=== PATIENT | female | born 2005 | race Hispanic/Latino ===

== ENCOUNTER 2024-04-10 15:14 | Emergency (ER) | payer SELFPAY ==
[2024-04-10 15:17] VITALS: BP 157/106
--- NOTE | 2024-04-10 17:20 | ED.GENMED ---
History of Present Illness
General
Chief Complaint: Skin Surface Trauma
Source: patient
Time Seen by Provider: 04/10/24 16:23
History of Present Illness
History of Present Illness:
18yoF with no significant past medical history presenting with her significant other for evaluation of a right eyebrow laceration. 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 Patient was playing soccer
about 1 hour prior to when she jumped up for a header. She collided with another player causing a laceration. Patient has a minor headache currently. She is otherwise asymptomatic and denies any dizziness, vomiting, visual changes. She reports
being up-to-date on Tdap.
Phy Exam
General Physical Exam
General Presentation: well appearing and no apparent distress
General age: appears stated age
General Skin: warm and dry
General Habitus: normal
ENT Exam
ENT Exam: normocephalic
Eye Exam
Eye Exam: PERRL
Pulmonary Exam
Pulmonary Exam: no respiratory distress
Ovi Coma Scale
Eye Opening: Spontaneous
Verbal Response: Oriented
Motor Response: Obeys Commands
GCS Total Score: 15
Skin Exam
Skin Exam: warm/dry and laceration (3cm gaping laceration to the R eyebrow. No active bleeding.)
Psychiatric Exam
Psychiatric Exam: normal mood/affect
Course
Vital Signs
Initial and Last Documented VS:
Initial Vital Signs
Temp Pulse Resp BP Pulse Ox
99.0 F 120 18 157/106 98
04/10/24 15:17 04/10/24 15:17 04/10/24 15:17 04/10/24 15:17 04/10/24 15:17
Last Documented Vital Signs
Temp Pulse Resp BP Pulse Ox
99.0 F 120 18 157/106 98
04/10/24 15:17 04/10/24 15:17 04/10/24 17:37 04/10/24 15:17 04/10/24 15:17
Procedures
Laceration Closure
Right eyebrow:
Status of Wound: clean
Size of Wound in cm: 3
Description of Wound Edges: sharp
Preparation: cleaned with saline
Anesthesia: 1% Lidocaine
Revision/Debridement: routine- no revision
Wound exploration: extensive cleaning of contaminated wound and explored to base- no FB
Type of Closure: single layer closure and interrupted sutures
Skin Closure Material: 5-0 prolene
Number of sutures: 6
MDM/Problems Addressed
Differential Diagnosis Includes:
18yoF here with a R eyebrow laceration after colliding with another person while playing soccer. No LOC, vomiting, dizziness. 3cm gaping laceration noted on exam. No other external signs of head trauma noted. Laceration cleaned and repaired as
above. Home wound care discussed. She was instructed to get sutures removed in 5 days. ED return precautions discussed including signs of infection. She was discharged in stable condition.
*Critical Care Note
Total Time (30-74mins, 75-104mins- exclusive of procedures): Not Applicable
ED Attending Note
-
Portions of this chart may have been created with voice recognition software.� Occasional wrong word or��sound alike� substitutions may have occurred due to the inherent limitations of voice recognition software.
Discharge Plan
Departure
Patient Disposition: Home (Routine Discharge)
Date of Disposition: 04/10/24
Time of Disposition: 17:21
Patient with high blood pressure during this ER visit?: Yes
Discharge Problem:
Laceration of right eyebrow
Instructions: Laceration Repair With Stitches (DC)
Activity Restrictions/Additional Instructions:
Keep wound clean and dry.
The sutures will need to be removed in 5 days. Return to the ER with any signs of infection (redness, drainage, warmth).
Interventions
Interventions:
*Risk Screen - Suicide Last Done: 04/10/24 15:17
*General Assessment Last Done: 04/10/24 15:17
*Neglect/Abuse Screening Last Done: 04/10/24 15:17
ED- Fall Risk Assessment Last Done: 04/10/24 17:37
*ED COVID-19 Vaccine History Last Done: 04/10/24 15:17
*Nursing Disposition Last Done: 04/10/24 17:37
ED-Skin Assessment Last Done: 04/10/24 17:30
Discharge Date and Time
Discharge Date/Time: 04/10/24 17:38
Print Language: [place]
== END 2024-04-10 17:38 | disposition home or self-care (01) ==
LOC: EMR 15:14
PROVIDERS: EMERGENCY PHYSICIAN Emergency Medicine
DX: S01.111A Laceration without foreign body of right eyelid and periocular area, initial encounter (principal); W51.XXXA Accidental striking against or bumped into by another person, initial encounter; Y93.66 Activity, soccer
CPT/HCPCS: 12013; 99282